=== PATIENT | female | born 1980 | race American Indian/Alaskan Native ===

== ENCOUNTER 2018-05-18 10:16 | Observation (INO) | payer OTHER ==
[2018-05-18] MEDS ORDERED: LACTATED RINGERS 500 ML IV ONE (10:53)
[2018-05-18 11:29] LABS: Hematocrit 32.5 % (30.3-42.9); Hemoglobin 10.9 gm/dl (10.1-14.3); Mean Corpuscular HGB Conc 34 % (30-34); Mean Corpuscular Volume 91 fl (79-97); Platelet Count 202 K/mm3 (140-440); Red Blood Count 3.58 M/mm3 (3.65-5.03); Red Cell Distribution Width 15.9 % (13.2-15.2)
[2018-05-18 11:34] LABS: Bilirubin,Urine NEG (Negative); Blood,Urine NEG (Negative); Color,Urine Yellow (Yellow); Mucus,Urine FEW /HPF; Protein,Urine <15 mg/dL mg/dL (Negative); Urobilinogen,Urine < 2.0 mg/dL (<2.0)
[2018-05-18] MEDS ORDERED: CELESTONE SOLUSPAN IM ONE (11:48)
[2018-05-18] MEDS ORDERED: CELESTONE SOLUSPAN IM SCH (12:00)
[2018-05-18 12:06] LABS: Amphetamine Screen,Urine PRESUMPTIVE NEGATIVE; Benzodiazepines Screen,Urine PRESUMPTIVE NEGATIVE; Cannabinoid Screen,Urine PRESUMPTIVE NEGATIVE; Cocaine Screen,Urine PRESUMPTIVE NEGATIVE; Methadone Screen,Urine PRESUMPTIVE NEGATIVE; Opiate Screen,Urine PRESUMPTIVE NEGATIVE
[2018-05-18 13:34] VITALS: BP 108/57
--- NOTE | 2018-05-18 13:57 | Consultation ---
History of Present Illness Consult date: 05/18/18 Requesting physician: YEYO MCCULLOUGH History of present illness: 37 y/0 VIRGIL 08/04/18 EGA at 28 6/7 weeks Sent in from OB's office for arrythmia Denies complications - Seen by [facility] for AMA Denies Vag bleed leaking or reg ctx's EFM Increased Variability with Variables upon admission Overall Strip now appears reassuring Baseline 130- 140's Pos accels occ variables BPP 09/13 EFW at 61% OB 03 T F 15 T F No Med ds, surg , std, C/D/D or ALL Past History - Obstetrical History : 4 Medications and Allergies Allergies Allergy/AdvReac Type Severity Reaction Status Date / Time No Known Allergies Allergy Unverified 05/18/18 10:47 Home Medications Medication Instructions Recorded Confirmed Last Taken Type Iron 1 tab PO DAILY 05/18/18 05/18/18 Unknown History Active Meds: Active Medications Betamethasone Acet/Betameth SodPhos (Celestone Soluspan) 12 mg IM Q24H BLAKE Stop: 05/19/18 12:01 Last Admin: 05/18/18 11:50 Dose: 12 mg Documented by: - Vital Signs Vital signs: Vital Signs Temp Resp 98.3 F 18 05/18/18 10:30 05/18/18 10:30 Temp Pulse Resp BP Pulse Ox 98.3 F 97 H 18 108/57 98 05/18/18 10:30 05/18/18 13:39 05/18/18 10:30 05/18/18 13:33 05/18/18 13:39 Results Result Diagrams: 05/18/18 11:13 Abnormal lab results 05/18/18 Range/Units 11:13 RBC 3.58 L (3.65-5.03) M/mm3 RDW 15.9 H (13.2-15.2) % All other labs normal. Assessment and Plan Assess 1. Chu IUP at 28 6/7 weeks 2. Suspected Arrythmia - Overall Strip Reassuring 3. AMA Plan 1. Check Drug screen and TSH 2. May discharge home 3. Call for DFM's 4. FU with [facility] next week
--- NOTE | 2018-05-21 07:51 | Ultrasound Report ---
OB ULTRASOUND History : Irregular heart rate at 286/7. Technique: Transabdominal ultrasound with Doppler interrogation. Gestation: Single Position: Cephalic Amniotic Fluid: Normal DE = 10.7 cm Placenta: Posterior Placental Grade: 0 Heart Rate: 152 BPM BPD: 7.4 cm = 29 w 6 d HC: 26.5 cm = 28 w 6 d AC: 25.3 cm = 29 w 4 d FL: 5.7 cm = 29 w 5 d HC/AC Ratio: 1.05 Cephalic Index: 83.9 Estimated Weight: 1411 grams Clinical age = 28 w 6 d EDC: 08/04/18 US Gest. Age = 29 w 4 d EDC: 07/30/18 IMPRESSION: Viable, single intrauterine as described.
--- NOTE | 2018-05-21 07:52 | Ultrasound Report ---
ULTRASOUND OB VELOCIMETRY UMBILICAL ARTERY HISTORY: Irregular heart rate at 286/7. TECHNIQUE: Transabdominal ultrasound. Spectral Doppler interrogation was performed on 3 segments of the umbilical cord. FINDINGS: heart rate measures 155 beats per minute. The spectral waveforms are normal and persistent. No evidence for loss or reversal of end-diastolic flow. The resistive index average measures 0.63. The systolic/diastolic ratio average measures 2.71. IMPRESSION: Umbilical cord Doppler within normal limits.
--- NOTE | 2018-05-21 07:53 | Ultrasound Report ---
ULTRASOUND BIOPHYSICAL PROFILE: History: Irregular heart rate at 286/7 Technique: Transabdominal ultrasound with Doppler interrogation. 2 - breathing movements 2 - movements 2 - posture and tone 2 - Qualitative amniotic fluid volume 8 - TOTAL SCORE OF POSSIBLE 8 Heart Rate (bpm) 135
== END 2018-05-18 14:15 | disposition home or self-care (01) ==
LOC: TRG 10:16 → INTOOBSV 11:07 → TRG 11:07 → LD 11:07
PROVIDERS: ADMIT Obstetrics & Gynecology; ATTEND Obstetrics & Gynecology
DX: O99.413 Diseases of the circulatory system complicating pregnancy, third trimester (principal); O09.523 Supervision of elderly multigravida, third trimester; Z3A.28 28 weeks gestation of pregnancy
CPT/HCPCS: 36415; 59025; 76816; 76819; 76820; 80307; 81001; 84443; 85027; 86850; 86900; 86901; 96372; G0378; J0702; J7120; 96360

== ENCOUNTER 2018-07-27 01:36 | Inpatient (IN) | payer OTHER ==
[2018-07-27] MEDS ORDERED: BRETHINE SUB-Q PRN (02:02)
[2018-07-27] MEDS ORDERED: AMPICILLIN/NS 2 GM/100 ML 2 GM/100 ML BAG IV ONE (02:02)
[2018-07-27] MEDS ORDERED: MINERAL OIL PO PRN (02:02)
[2018-07-27] MEDS ORDERED: SUBLIMAZE IV PRN (02:02)
[2018-07-27] MEDS ORDERED: XYLOCAINE 2% INFILTRATI ONE (02:02)
[2018-07-27] MEDS ORDERED: BRETHINE IVP PRN (02:02)
[2018-07-27 02:39] LABS: Hematocrit 35.3 % (30.3-42.9); Hemoglobin 11.8 gm/dl (10.1-14.3); Mean Corpuscular HGB Conc 34 % (30-34); Mean Corpuscular Volume 90 fl (79-97); Platelet Count 172 K/mm3 (140-440); Red Cell Distribution Width 18.2 % (13.2-15.2)
[2018-07-27] MEDS ORDERED: PITOCin/NS 20 UNIT/1000ML DRIP 20 UNITS/1,000 ML BAG IV SCH (03:00)
[2018-07-27] MEDS ORDERED: LACTATED RINGERS 1,000 ML IV SCH (03:00)
[2018-07-27] MEDS ORDERED: MARCAINE 0.25% INFILTRATI ONE (04:40)
--- NOTE | 2018-07-27 05:19 | Procedure Note ---
OB Delivery Note - Delivery Date of Delivery: 07/27/18 Surgeon: LARA MARTE (ALFONSO) Estimated blood loss: 200cc - Vaginal Delivery presentation: vertex Delivery position: OA Intrapartum events: none Delivery induction: none Delivery monitor: external FHT, external uterine Route of delivery: (04:49) Delivery placenta: spontaneous (05:05) Delivery cord: 3 umbilical vessels Episiotomy: none Delivery laceration: none Anesthesia: none Delivery comments: Arrived to pt room following nurse delivery of viable male at 04:49. Vigorous male infant in RW. Spontanoeus delivery of intact placenta at 05:05. FF@U-2, small lochia. Perineum inspected. No tears or lacerations noted. EBL 200ml. Infant and mother left in stable condition in L&D. - Infant A at 1 minute: 9 at 5 minutes: 9 Infant Gender: Male (3112 Grams, 6lbs 14oz, 19")
[2018-07-27] MEDS ORDERED: TYLENOL PO PRN (05:30)
[2018-07-27] MEDS ORDERED: BENADRYL PO PRN (05:30)
[2018-07-27] MEDS ORDERED: LANSINOH TP PRN (05:30)
[2018-07-27] MEDS ORDERED: PHENERGAN PO PRN (05:30)
[2018-07-27] MEDS ORDERED: MILK OF MAGNESIA PO PRN (05:30)
[2018-07-27] MEDS ORDERED: ZOFRAN IV PRN (05:30)
[2018-07-27] MEDS ORDERED: TUCKS PAD TP PRN (05:30)
[2018-07-27] MEDS ORDERED: NORCO 5/325 PO PRN (05:30)
[2018-07-27] MEDS ORDERED: DULCOLAX PR PRN (05:30)
--- NOTE | 2018-07-27 05:49 | History and Physical Report ---
History of Present Illness Date of examination: 07/27/18 Date of admission: 07/27/18 02:01 Chief complaint: Intense labor pains History of present illness: 37 yo AA Fe , VIRGIL 08/04/18 38w6d, Presents in active labor. Pt reports early care with [facility]. records not available. Pt denies any significant medical history. Co-managed with [facility] d/t AMA. Reports GBS positive status. Past History Past Medical History: no pertinent history Past Surgical History: no surgical history [employer] History: denies: abnormal PAP smear, chlamydia, gonorrhea, hepatitis B, hepatitis C, herpes, HIV, syphilis, trichomonas Family/Genetic History: none Social history: no significant social history, lives with family, full code. denies: smoking, alcohol abuse, prescription drug abuse, IV drug use - Obstetrical History Expected Date of Delivery: 08/04/18 Actual Gestation: 38 Week(s) 6 Day(s) : 4 Para: 2 Hx # Term Pregnancies: 0 Number of Pregnancies: 0 Spontaneous Abortions: 1 Induced : 0 Number of Living Children: 2 Medications and Allergies Allergies Allergy/AdvReac Type Severity Reaction Status Date / Time No Known Allergies Allergy Unverified 05/18/18 10:47 Home Medications Medication Instructions Recorded Confirmed Last Taken Type Iron 1 tab PO BID 05/18/18 05/18/18 07/26/18 History Vit-Fe Fumar-FA [ 1 tab PO DAILY 07/27/18 07/27/18 07/26/18 History Vitamin] Active Meds: Active Medications Ephedrine Sulfate (Ephedrine Sulfate) 10 mg IV Q2M PRN PRN Reason: Hypotension Fentanyl (Sublimaze) 100 mcg IV Q2H PRN PRN Reason: Labor Pain Last Admin: 07/27/18 03:10 Dose: 100 mcg Documented by: Oxytocin/Sodium Chloride (Pitocin/Ns 20 Unit/1000ml Drip) 20 units in 1,000 mls @ 125 mls/hr IV DIRECT BLAKE Lactated Ringer's (Lactated Ringers) 1,000 mls @ 125 mls/hr IV DIRECT BLAKE Last Admin: 07/27/18 03:12 Dose: 125 mls/hr Documented by: Ampicillin Sodium (Ampicillin/Ns 1 Gm/50 Ml) 1 gm in 50 mls @ 100 mls/hr IV Q4HR BLAKE; Protocol Mineral Oil (Mineral Oil) 30 ml PO QHS PRN PRN Reason: Constipation Terbutaline Sulfate (Brethine) 0.25 mg SUB-Q ONCE PRN PRN Reason: Hyperstimulation/Hypertonicity Terbutaline Sulfate (Brethine) 0.25 mg IVP ONCE PRN PRN Reason: Hyperstimulation/Hypertonicity Review of Systems Eyes: normal appearance Cardiovascular: no chest pain, no shortness of breath Respiratory: no shortness of breath Breasts: normal Gastrointestinal: abdominal pain, no nausea, no vomiting, no diarrhea Genitourinary: normal appearance, contractions, no leakage of fluid, no genital sores Integumentary: no rash, no sores, no lesions - Vital Signs Vital signs: Vital Signs Pulse Pulse Ox 90 99 07/27/18 01:45 07/27/18 01:45 Temp Pulse Resp BP Pulse Ox 98.2 F 85 18 110/62 98 07/27/18 01:52 07/27/18 05:05 07/27/18 01:52 07/27/18 05:05 07/27/18 02:05 - Physical Exam Breasts: Positive: normal Cardiovascular: Regular rate, Normal S1, Normal S2, No murmurs Lungs: Positive: Clear to auscultation, Normal air movement Abdomen: Positive: normal appearance, soft, normal bowel sounds Genitourinary (Female): Positive: normal external genitalia, normal perenium Vagina: Positive: normal moisture - Obstetrical FHR: category 1 Uterine Contraction Monitor Mode: External Cervical Dilatation: 10 (6 on admission) Uterine Contraction Pattern: Regular Uterine Tone Measurement Phase: Resting Results Result Diagrams: 07/27/18 02:10 Abnormal lab results 07/27/18 Range/Units 02:10 RDW 18.2 H (13.2-15.2) % All other labs normal. Assessment and Plan A: Term IUP Active labor Category 1 tracing GBS positive P: Admit to L&D, Routine labor orders GBS Prophylaxis Anticipate NCVD
[2018-07-27] MEDS ORDERED: SODIUM CHLORIDE FLUSH SYRINGE 10 ML IV PRN (06:00)
[2018-07-27] MEDS ORDERED: AMPICILLIN/NS 1 GM/50 ML 1 GM/50 ML BAG IV SCH (06:03)
[2018-07-27 17:58] LABS: Hematocrit 30.2 % (30.3-42.9); Hemoglobin 10.5 gm/dl (10.1-14.3)
[2018-07-28] MEDS: IBUPROFEN PO SCH ×2 (02:11→06:22)
--- NOTE | 2018-07-28 11:03 | Progress Note ---
Assessment and Plan A: day 1 S/P spontaneous vaginal delivery. Anemia secondary to and blood loss. P: Supplement with oral iron. Anticipate discharge tomorrow if patient continues to do well. Subjective - Subjective Date of service: 07/28/18 Principal diagnosis: day 1 S/P spontaneous vaginal delivery Interval history: day 1 S/P spontaneous vaginal delivery. Doing well. Patient reports a small amount of lochia. She is voiding without difficulty, ambulating well, tolerating a regular diet without nausea or vomiting. Patient denies headache, chest pain, cough, shortness of breath, abdominal pain, leg pain, or dizziness. Patient reports: appetite normal, voiding normally, pain well controlled, ambulating normally, no dizzy ambulation, no nauseated [place]: doing well Objective - Vital Signs Latest vital signs: Vital Signs Temp Pulse Resp BP BP Pulse Ox 07/28/18 08:20 98.1 F 87 20 100/69 07/27/18 23:42 98.2 F 85 18 110/70 99 07/27/18 17:16 97.9 F 79 18 103/44 07/27/18 12:15 97.7 F 67 18 105/66 Intake and Output 07/27/18 07/28/18 07/28/18 23:59 07:59 15:59 Intake Total 720 240 Balance 720 240 Intake: Oral 480 240 Intake, Free Water 240 Other: Total, Intake Amount 480 240 # Voids Void 1 2 1 - Exam Abdomen: Present: normal appearance, soft. Absent: distention, tenderness, guarding, rigidity Uterus: Present: normal, firm, fundal height below umbilicus. Absent: bogginess, tenderness Extremities: Present: normal. Absent: tenderness - Labs Labs: Abnormal lab results 07/27/18 Range/Units 17:37 Hct 30.2 L (30.3-42.9) %
[2018-07-28] MEDS: FEOSOL PO SCH ×2 (12:26→21:30)
[2018-07-28 23:30] LABS: Hepatitis C Virus Antibody Non-Reactive (NonReactive)
[2018-07-29] MEDS: IBUPROFEN PO SCH ×2 (00:20→05:34)
[2018-07-29] MEDS: FEOSOL PO SCH (10:22)
--- NOTE | 2018-07-29 10:34 | Progress Note ---
Assessment and Plan A: day 2 S/P spontaneous vaginal delivery. Anemia secondary to and blood loss. P: Discharge patient home today when baby is able to go. discharge instructions and warning signs discussed with patient. Advised patient to continue taking her vitamins and iron supplements at home. Advised patient to avoid intercourse, lifting and heavy housework, driving. Advised patient to follow up at [facility] in 6 weeks for exam. Subjective - Subjective Date of service: 07/29/18 Principal diagnosis: day 2 S/P spontaneous vaginal delivery Interval history: day 2 S/P spontaneous vaginal delivery. Doing well. Patient wants to go home today. Patient reports a small amount of lochia. She is voiding without difficulty, ambulating well, tolerating a regular diet without nausea or vomiting. Patient denies headache, chest pain, cough, shortness of breath, abdominal pain, leg pain, or dizziness. Patient reports: appetite normal, voiding normally, pain well controlled, flatus, bowel movement, ambulating normally, no dizzy ambulation, no nauseated : doing well Objective - Vital Signs Latest vital signs: Vital Signs Temp Pulse Resp BP BP Pulse Ox 07/29/18 08:05 97.9 F 83 20 107/73 07/29/18 00:43 98.2 F 79 18 109/62 99 07/28/18 16:50 98 F 93 H 20 102/55 Intake and Output 07/28/18 07/29/18 07/29/18 23:59 07:59 15:59 Intake Total 360 720 120 Output Total 2 Balance 360 718 120 Intake: Oral 360 120 Intake, Free Water 720 Output: Urine 2 Void 2 Other: Total, Intake Amount 120 120 Total, Output Amount 2 # Voids Void 1 1 1 - Exam Cardiovascular: Present: Regular rate, Normal S1, Normal S2, No murmurs Lungs: Present: Clear to auscultation Abdomen: Present: normal appearance, soft. Absent: distention, tenderness, guarding, rigidity Uterus: Present: normal, firm, fundal height below umbilicus. Absent: bogginess, tenderness Extremities: Present: normal. Absent: tenderness, edema
--- NOTE | 2018-07-29 10:37 | Discharge Summary ---
Providers - Providers Date of Admission: 07/27/18 02:01 Date of discharge: 07/29/18 Attending physician: BRYANNA SANTORO MD None Primary care physician: BRYANNA SANTORO MD Hospitalization Reason for admission: active labor Delivery: Episiotomy: none Laceration: none Other procedures: none complications: none Discharge diagnosis: IUP at term delivered baby: male Pertinent studies: Labs Hospital course: Normal hospital course. Condition at discharge: Good Disposition: DC-01 TO HOME OR SELFCARE - Discharge Diagnoses (1) Term delivered Status: Acute (2) Anemia due to blood loss Status: Acute Plan - Provider Discharge Summary Activity: routine, no sex for 6 weeks, no heavy lifting 4 weeks, no strenuous exercise Diet: routine Instructions: routine Additional instructions: Continue taking your vitamins and iron supplements at home. Call your doctor immediately for: * Fever > 100.5 * Heavy vaginal bleeding ( >1 pad per hour) * Severe persistent headache * Shortness of breath * Reddened, hot, painful area to leg or breast - Follow up plan Follow up: BRYANNA SANTORO MD [Primary Care Provider] - 6 Weeks
[2018-07-29 17:11] VITALS: BP 107/68
== END 2018-07-29 15:00 | disposition home or self-care (01) | DRG 807 ==
LOC: TRG 01:36 → LD 02:01 → OB 07:33
PROVIDERS: ADMIT Obstetrics & Gynecology; ATTEND Obstetrics & Gynecology
PROC: 10E0XZZ Delivery of Products of Conception, External Approach (ICD-10-PCS; principal; 2018-07-27)
DX: O99.824 Streptococcus B carrier state complicating childbirth (principal); Z37.0 Single live birth; O99.02 Anemia complicating childbirth; D50.0 Iron deficiency anemia secondary to blood loss (chronic); Z3A.38 38 weeks gestation of pregnancy
CPT/HCPCS: 36415; 85014; 85018; 85027; 86592; 86706; 86762; 86803; 86850; 86900; 86901; 87806; G0378; J0290; J2590; J3010; J7120